=== PATIENT | female | born 1990 | race Caucasian/White ===

== ENCOUNTER → 2020-08-17 | Outpatient (CLI) | payer BC ==
--- NOTE | 2020-08-18 16:56 | US ---
EXAM DESCRIPTION: Pelvic,Non-OB: Ultrasound. CLINICAL HISTORY: 29 years Female CYST OF RIGHT OVARY. LMP August 05. COMPARISON: None TECHNIQUE: Transcutaneous scanning through the urine filled bladder. Olivas-scale and Doppler modes. FINDINGS: Uterus 9.3 x 5.8 x 4.8 cm. 36.6 mL. Endometrium 10.6 mm.. Echogenic structure in the endometrial canal consistent with IUD. Myometrium heterogeneous. Uterus not retroverted. Cervix unremarkable. Cul-de-sac: No fluid. Right ovary 6.3 x 3.6 x 3.2 cm. 37.2 mL. Normal color and waveform Doppler vascularity. Simple right ovarian cyst measuring 3.4 x 2.4 x 2.8 cm. Not vascular. Second simple cyst measures 2.2 x 2.0 x 1.6 cm. Not vascular. A third simple cyst measures 2.8 x 1.7 x 1.4 cm. Not vascular. No adnexal mass or free fluid. Left ovary not visualized. cm. No adnexal mass or free fluid. IMPRESSION: 1. Enlarged right ovary with 3 simple cysts measuring 3.4 cm, 2.8 cm, and 2.2 cm, longest axis. [facility] Best Practice guidelines: Recommendations for f/u of anechoic simple cyst, simple cyst with single thin <3mm septation, or focal calcification in wall of cyst: Pre-menopause: < 5 cm No f/u necessary >5cm - <7cm US f/u yearly >7cm Consider MR w/IVC or surgical evaluation 1. Recommendations based upon the 2010 [employer]U Consensus Conference Statement on the Management of asymptomatic ovarian and adnexal cysts imaged at US. Radiology. 2009;256(3):943-54. 2. No free fluid. Left ovary not visualized in the left adnexa. Uterus with normal anteversion. Endometrium borderline thickening which could be due to IUD. No fluid in the endometrial cavity. No fluid in the cul-de-sac. Electronically signed by: Emmanuel Snyder MD 08/18/2020 4:55 PM [facility]
== END ==
LOC: US 13:15
PROVIDERS: ATTEND Nurse Practitioner Family
DX: N83.201 Unspecified ovarian cyst, right side (principal)